=== PATIENT | male | born 2005 | race American Indian/Alaskan Native ===

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

== ENCOUNTER 2024-08-23 06:56 | Emergency (ER) | payer MEDICAID ==
[2024-08-23] MEDS: Ondansetron 4 MG Tab.DIS PO ONE (07:12)
[2024-08-23] MEDS: cefTRIAXone 1 GM Vial IVPUSH ONE (07:23)
[2024-08-23] MEDS: cefTRIAXone 1 GM, Lidocaine 1% 2.1 ML IM ONE (07:24)
== END 2024-08-23 07:22 | disposition home or self-care (01) ==
LOC: DL.ED 06:56
DX: H66.003 Acute suppurative otitis media without spontaneous rupture of ear drum, bilateral (principal)
CPT/HCPCS: 96374; 99283; A9270; J0696

== ENCOUNTER 2024-10-21 02:26 | Emergency (ER) | payer MEDICAID ==
[2024-10-21 03:17] LABS: BASOPHILS PERCENT AUTO 0.7 % (0.0-1.0); EOSINOPHILS PERCENT AUTO 6.9 % (1.0-3.0); HEMATOCRIT 41.4 % (40.0-54.0); HEMOGLOBIN 14.1 g/dL (14.0-18.0); LYMPHOCYTES PERCENT AUTO 33.2 % (20.5-50.1); MEAN CORPUSCULAR HEMOGLOBIN 29.9 pg (27.0-34.0); MEAN CORPUSCULAR HGB CONC 34.1 g/dL (33.0-35.0); MEAN CORPUSCULAR VOLUME 87.9 fL (80-100); MONOCYTES PERCENT AUTO 11.8 % (2-8); NEUTROPHILS PERCENT AUTO 47.4 % (42.2-75.2); PLATELET COUNT,PLT 258 10^3/uL (150-450); RED BLOOD CELL COUNT 4.71 10^6/uL (4.6-6.2); WHITE BLOOD CELL COUNT,WBC 5.9 10^3/uL (5.0-10.0)
[2024-10-21] MEDS: Lidocaine 1% 30 ML SDV ONE (03:40)
[2024-10-21 03:54] LABS: A/G RATIO 1.1; ALANINE AMINOTRANSFERASE,ALT 35 U/L (16-63); ALKALINE PHOSPHATASE 95 U/L (46-116); ANION GAP 13.7 mEq/L (7-13); ASPARTATE AMNIOTRANSFERASE,AST 28 U/L (15-37); BILIRUBIN TOTAL 0.3 mg/dL (0.2-1.0); BLOOD UREA NITROGEN,BUN 14 mg/dL (7-18); BUN/CREATININE RATIO 14.7 (No establ ref range); CALCIUM 8.7 mg/dL (8.5-10.1); CARBON DIOXIDE,CO2 26 mmol/L (21-32); CHLORIDE,CL 110 mmol/L (98-107); CREATININE 0.95 mg/dL (0.70-1.30); ETHANOL BLOOD MEDICAL 203 mg/dL (0); GLUCOSE RANDOM 103 mg/dL (70-99); MAGNESIUM 2.1 mg/dL (1.8-2.4); POTASSIUM,K 3.7 mmol/L (3.5-5.1); PROTEIN TOTAL,TP 7.6 g/dL (6.4-8.2); SODIUM,NA 146 mmol/L (136-145)
[2024-10-21 03:56] LABS: ESTIMATED GFR 117 mL/min (>=60)
[2024-10-21] MEDS: Bacitracin Oint 1 GM U/D Packet TOP ONE (04:17)
[2024-10-21] MEDS: Cephalexin 500 MG Cap PO ONE (04:17)
== END 2024-10-21 04:25 | disposition home or self-care (01) ==
LOC: DL.ED 02:26
DX: S51.811A Laceration without foreign body of right forearm, initial encounter (principal); Y04.0XXA Assault by unarmed brawl or fight, initial encounter
CPT/HCPCS: 12004; 36415; 70450; 70486; 71045; 72125; 80053; 80307; 83735; 85025; 99284; A9270; J2003; 99283